=== PATIENT | male | born 1990 | race Two or more races ===

== ENCOUNTER 2019-02-05 13:41 | Emergency (ER) | payer MEDICAID, OTHER ==
[~2019-02-05] VITALS: Ht 177.8 cm; Wt 72.6 kg
[2019-02-05 14:43] VITALS: BP 130/80
[2019-02-05] MEDS ORDERED: IBUPROFEN 800 MG TAB PO ONE (15:00)
== END 2019-02-05 15:31 | disposition home or self-care (01) ==
LOC: EDBD 13:41 → ER 13:41
DX: S93.402A Sprain of unspecified ligament of left ankle, initial encounter (principal); F17.210 Nicotine dependence, cigarettes, uncomplicated; Z59.0 Homelessness; X50.1XXA Overexertion from prolonged static or awkward postures, initial encounter; Y93.01 Activity, walking, marching and hiking; Y92.89 Other specified places as the place of occurrence of the external cause; Y99.8 Other external cause status
CPT/HCPCS: 73610